=== PATIENT | male | born 1950 ===

== ENCOUNTER 2025-05-21 14:03 | Inpatient (IN) | payer MEDICARE, OTHER ==
[~2025-05-21] VITALS: Ht 175.3 cm; Wt 77.1 kg
[2025-05-21] MEDS ORDERED: VANCOMYCIN IV 1,000 MG in IV DEXTROSE 5% 250 ML IV ONE (14:15)
[2025-05-21 14:30] LABS: BASOPHILS % (AUTO) 0.1 % (0.0-2.0); HEMATOCRIT 45.3 % (36.7-47.1); HEMOGLOBIN 14.8 g/dL (12.5-16.3); LYMPHOCYTES # (AUTO) 0.5 K/uL (0.8-4.8); LYMPHOCYTES % (AUTO) 2.5 % (20.5-51.5); MEAN CORPUSCULAR HEMOGLOBIN 28.1 uug (23.8-33.4); MEAN CORPUSCULAR HGB CONC 33 g/dL (32.5-36.3); MEAN CORPUSCULAR VOLUME 86.2 fL (73.0-96.2); MONOCYTES # (AUTO) 1.7 K/uL (0.1-1.30); MONOCYTES % (AUTO) 8.8 % (0.0-11.0); NEUTROPHILS # (AUTO) 17.6 K/uL (1.8-8.9); NEUTROPHILS % (AUTO) 88.6 % (38.5-71.5); PLATELET COUNT (AUTO) 276 K/uL (152-348); RED BLOOD CELL COUNT(AUTO) 5.26 MIL/uL (4.06-5.63); WHITE BLOOD COUNT (AUTO) 19.9 K/uL (3.6-10.2)
[2025-05-21] MEDS ORDERED: LOSA50TA39 PO (14:32)
[2025-05-21] MEDS ORDERED: TRAZ150T75 PO (14:32)
[2025-05-21] MEDS ORDERED: LOPE2TAB25 PO (14:32)
[2025-05-21] MEDS ORDERED: MULT-213 PO (14:32)
[2025-05-21] MEDS ORDERED: ATOR10TA PO (14:32)
[2025-05-21] MEDS ORDERED: LEVO150T8 PO (14:32)
[2025-05-21] MEDS ORDERED: MIRT-74 PO (14:32)
[2025-05-21] MEDS ORDERED: ACET-3117 PO (14:32)
[2025-05-21] MEDS ORDERED: BISA10SU95 RC (14:32)
[2025-05-21] MEDS ORDERED: ASCO500C18 PO (14:32)
[2025-05-21] MEDS ORDERED: LAMO150T6 PO (14:32)
[2025-05-21] MEDS ORDERED: FLUP5TAB14 PO ×2 (14:32)
[2025-05-21] MEDS ORDERED: DOCU100T2 PO (14:32)
[2025-05-21] MEDS ORDERED: CRAN450T9 PO (14:32)
[2025-05-21] MEDS ORDERED: TAMS-3 PO (14:32)
[2025-05-21] MEDS ORDERED: LAMO100T17 PO (14:32)
[2025-05-21] MEDS ORDERED: HYDR-3980 PO (14:32)
[2025-05-21] MEDS ORDERED: SERT100T PO (14:32)
[2025-05-21] MEDS ORDERED: NA P133E8 RC (14:32)
[2025-05-21] MEDS ORDERED: FINA5TAB11 PO (14:32)
[2025-05-21] MEDS ORDERED: CEFTRIAXONE /D5W 50ML IVPB **ER PYXIS IV ONE ×2 (14:33→22:00)
[2025-05-21] MEDS ORDERED: AZITHROMYCIN 500MG/ D5W 250ML IVPB **ER PYXIS ONLY IV ONE (14:34)
[2025-05-21] MEDS: AZITHROMYCIN IV 500 MG in IV DEXTROSE 5% 250 ML IV ONE (14:34)
[2025-05-21] MEDS: DEXAMETHASONE SOD PHOSPHATE 4 MG INJ IV ONE (14:34)
[2025-05-21] MEDS: CEFTRIAXONE 1 G in IV DEXTROSE 5% 50 ML IV ONE (14:34)
[2025-05-21] MEDS ORDERED: DEXAMETHASONE SOD PHOSPHATE 10 MG INJ ONE (14:34)
[2025-05-21] MEDS: IV NORMAL SALINE 1000 ML BAG IV ONE (14:34)
[2025-05-21 14:35] LABS: DIFFERENTIAL COMMENT 1
[2025-05-21 14:38] LABS: CALCIUM 10.4 mg/dL (8.5-10.1); CARBON DIOXIDE 25 mmol/L (21-32); CHLORIDE 99 mmol/L (98-107); CREATININE 1.7 mg/dL (0.6-1.3); GLUCOSE 156 mg/dL (74-106); POTASSIUM 4.8 mmol/L (3.5-5.1); SODIUM SERUM 137 mmol/L (136-145); UREA NITROGEN, BLOOD 29 mg/dL (7-18)
[2025-05-21 14:47] LABS: ABG BASE EXCESS 0.5 mmol/L (-2.0-3.0); ABG HCO3 22.3 mmol/L (21.0-28.0); ABG PCO2 28.7 mmHg (35.0-48.0); ABG PH 7.508 (7.350-7.450); ABG PO2 54.1 mmHg (83.0-108.0); ABG SITE RIGHT RADIAL; ABG TOTAL HEMOGLOBIN 14.8 G/dL (13.5-17.5); AaDO2 91.4 mmHg; COHb 1.1 % (0.5-1.5); MetHb 0.2 % (0.0-1.5); O2Hb 90.3 % (94.0-98.0)
[2025-05-21 14:50] LABS: LACTIC ACID 2.7 mmol/L (0.4-2.0)
[2025-05-21 14:51] LABS: ALANINE AMINOTRANSFERASE 23 U/L (16-63); ALBUMIN 3.4 g/dL (3.4-5.0); ALKALINE PHOSPHATASE 121 U/L (50-136); ASPARTATE AMINOTRANSFERASE 20 U/L (15-37); BILIRUBIN,DIRECT 0.2 mg/dL (0.0-0.2); BILIRUBIN,TOTAL 0.5 mg/dL (0.2-1.0); NT-PRO BNP 406 pg/mL (0-125); TOTAL PROTEIN, SERUM 7.6 g/dL (6.4-8.2)
[2025-05-21 16:00] LABS: *BILIRUBIN,URIN NEGATIVE (NEGATIVE); *BLOOD, URINE 2+ (NEGATIVE); *COLOR,URINE LIGHT YELLOW (YELLOW); *KETONES,URINE NEGATIVE (NEGATIVE); *PROTEIN,URINE 2+ (NEGATIVE); *UROBILINOGEN,URINE 0.2 E.U./dl (NORMAL); LEUKOCYTE ESTERASE ,URINE 3+ (NEGATIVE); NITRITE, URINE POSITIVE (NEGATIVE); UGLUCOSE NEGATIVE (NEGATIVE)
[2025-05-21 16:03] LABS: *CLARITY,URINE HAZY (CLEAR)
[2025-05-21 16:15] LABS: WBC,URINE 80-100 /HPF (0-3)
[2025-05-21 16:16] LABS: BACTERIA,URINE MODERATE /HPF (NONE SEEN); SQUAMOUS EPITHELIAL CELL,UR FEW /HPF (NONE SEEN)
[2025-05-21 21:10] VITALS: BP 112/70; TEMP 98.3; O2SAT 96
[2025-05-21] MEDS ORDERED: ONDANSETRON 4 MG/2 ML VIAL IV PRN (21:45)
[2025-05-21] MEDS: ENOXAPARIN SODIUM 40 MG/0.4 ML DISP.SYRIN SQ SCH (22:00)
[2025-05-21] MEDS: CEFTRIAXONE 1 G in IV DEXTROSE 5% 50 ML IV SCH (22:32)
[2025-05-21] MEDS: IV NS 1000 ML 1,000 ML IV PRN (22:32)
[2025-05-21] MEDS ORDERED: HYDROCODONE/APAP 10-325 MG TABLET PO PRN (23:15)
[2025-05-21] MEDS: FLUPHENAZINE HCL 5 MG TABLET PO SCH (23:15)
[2025-05-22] VITALS (7 sets, daily range): BP systolic 98–110; BP diastolic 54–64; TEMP 98.2–98.5; O2SAT 94–97
[2025-05-22] MEDS: TAMSULOSIN HCL 0.4 MG CAP.SR.24H PO SCH (00:08)
[2025-05-22] MEDS: LAMOTRIGINE 100 MG TABLET PO SCH ×2 (00:08→09:01)
[2025-05-22] MEDS: MIRTAZAPINE 15 MG TABLET PO SCH (00:09)
[2025-05-22] MEDS: ATORVASTATIN 10 MG TABLET PO SCH (00:10)
[2025-05-22] MEDS: FINASTERIDE 5 MG TABLET PO SCH (00:10)
[2025-05-22] MEDS: TRAZODONE 100 MG TABLET PO SCH (00:11)
[2025-05-22 06:38] LABS: HEMATOCRIT 36.1 % (36.7-47.1); HEMOGLOBIN 12.1 g/dL (12.5-16.3); LYMPHOCYTES # (AUTO) 0.6 K/uL (0.8-4.8); LYMPHOCYTES % (AUTO) 3.2 % (20.5-51.5); MEAN CORPUSCULAR HGB CONC 34 g/dL (32.5-36.3); MEAN CORPUSCULAR VOLUME 86.2 fL (73.0-96.2); MONOCYTES # (AUTO) 1.7 K/uL (0.1-1.30); MONOCYTES % (AUTO) 9.2 % (0.0-11.0); NEUTROPHILS # (AUTO) 16.4 K/uL (1.8-8.9); NEUTROPHILS % (AUTO) 87.6 % (38.5-71.5); PLATELET COUNT (AUTO) 253 K/uL (152-348); RED BLOOD CELL COUNT(AUTO) 4.18 MIL/uL (4.06-5.63); RED CELL DISTRIBUTION WIDTH 14.9 % (12.1-16.2); WHITE BLOOD COUNT (AUTO) 18.7 K/uL (3.6-10.2)
[2025-05-22 06:41] LABS: DIFFERENTIAL COMMENT 1
[2025-05-22] MEDS: LEVOTHYROXINE SODIUM 150 MCG TABLET PO SCH (06:45)
[2025-05-22 06:47] LABS: CALCIUM 9.6 mg/dL (8.5-10.1); CARBON DIOXIDE 24 mmol/L (21-32); CHLORIDE 104 mmol/L (98-107); CREATININE 1.2 mg/dL (0.6-1.3); GLUCOSE 126 mg/dL (74-106); MAGNESIUM 2.2 mg/dL (1.8-2.4); PHOSPHOROUS 3.1 mg/dL (2.5-4.9); POTASSIUM 4.6 mmol/L (3.5-5.1); SODIUM SERUM 141 mmol/L (136-145); UREA NITROGEN, BLOOD 25 mg/dL (7-18)
[2025-05-22] MEDS: FLUPHENAZINE HCL 5 MG TABLET PO SCH (08:59)
[2025-05-22] MEDS: MULTIVITAMINS,THERAPEUTIC TABLET PO SCH (09:00)
[2025-05-22] MEDS: LOSARTAN POTASSIUM 50 MG TABLET PO SCH (09:00)
[2025-05-22] MEDS: SERTRALINE HCL 100 MG TABLET PO SCH (09:01)
[2025-05-22] MEDS: ASCORBIC ACID 500 MG TABLET PO SCH (09:01)
[2025-05-22] MEDS: DOCUSATE SODIUM 100 MG CAPSULE PO SCH (09:02)
[2025-05-22] MEDS: MEROPENEM 1 G in IV NORMAL SALINE 100 ML IV SCH (14:06)
[2025-05-23] VITALS (8 sets, daily range): BP systolic 110–119; BP diastolic 59–71; TEMP 97.6–99.3; O2SAT 92–98
[2025-05-23 01:10] LABS: *BILIRUBIN,URIN NEGATIVE (NEGATIVE); *BLOOD, URINE 1+ (NEGATIVE); *CLARITY,URINE CLEAR (CLEAR); *COLOR,URINE YELLOW (YELLOW); *KETONES,URINE NEGATIVE (NEGATIVE); *PROTEIN,URINE 1+ (NEGATIVE); *UROBILINOGEN,URINE 0.2 E.U./dl (NORMAL); LEUKOCYTE ESTERASE ,URINE 2+ (NEGATIVE); NITRITE, URINE NEGATIVE (NEGATIVE); UGLUCOSE NEGATIVE (NEGATIVE)
[2025-05-23 01:24] LABS: *CREATININE,URINE 32.7 mg/dL (30-125); *URINE TOTAL PROTEIN RANDOM 50.1 mg/dL (<150/24HR)
[2025-05-23 01:51] LABS: BACTERIA,URINE MODERATE /HPF (NONE SEEN); SQUAMOUS EPITHELIAL CELL,UR FEW /HPF (NONE SEEN); WBC,URINE 20-50 /HPF (0-3)
[2025-05-23 06:50] LABS: ALANINE AMINOTRANSFERASE 24 U/L (16-63); ALBUMIN 2.3 g/dL (3.4-5.0); ALKALINE PHOSPHATASE 84 U/L (50-136); ASPARTATE AMINOTRANSFERASE 20 U/L (15-37); BILIRUBIN,TOTAL 0.3 mg/dL (0.2-1.0); CALCIUM 9.6 mg/dL (8.5-10.1); CARBON DIOXIDE 25 mmol/L (21-32); CHLORIDE 110 mmol/L (98-107); CREATINE KINASE, TOTAL 75 U/L (39-308); CREATININE 1.4 mg/dL (0.6-1.3); GLUCOSE 96 mg/dL (74-106); MAGNESIUM 2.1 mg/dL (1.8-2.4); POTASSIUM 3.9 mmol/L (3.5-5.1); SODIUM SERUM 144 mmol/L (136-145); TOTAL PROTEIN, SERUM 5.8 g/dL (6.4-8.2); UREA NITROGEN, BLOOD 23 mg/dL (7-18)
[2025-05-23 06:51] LABS: BASOPHILS % (AUTO) 0.1 % (0.0-2.0); EOSINOPHILS # (AUTO) 0.1 K/uL (0.0-0.7); EOSINOPHILS % (AUTO) 0.5 % (0.0-7.0); HEMATOCRIT 36.4 % (36.7-47.1); HEMOGLOBIN 12.1 g/dL (12.5-16.3); LYMPHOCYTES # (AUTO) 0.9 K/uL (0.8-4.8); LYMPHOCYTES % (AUTO) 7.4 % (20.5-51.5); MEAN CORPUSCULAR HEMOGLOBIN 28.7 uug (23.8-33.4); MEAN CORPUSCULAR HGB CONC 33 g/dL (32.5-36.3); MEAN CORPUSCULAR VOLUME 86.8 fL (73.0-96.2); MONOCYTES # (AUTO) 1.7 K/uL (0.1-1.30); MONOCYTES % (AUTO) 14.5 % (0.0-11.0); NEUTROPHILS % (AUTO) 77.5 % (38.5-71.5); PLATELET COUNT (AUTO) 278 K/uL (152-348); RED CELL DISTRIBUTION WIDTH 15.1 % (12.1-16.2); WHITE BLOOD COUNT (AUTO) 11.6 K/uL (3.6-10.2)
[2025-05-23 06:59] LABS: DIFFERENTIAL COMMENT 1
[2025-05-23] MEDS: NEUTRA PHOS PACKET PO ONE (17:20)
[2025-05-24] VITALS (8 sets, daily range): BP systolic 119–135; BP diastolic 51–75; TEMP 98–101; O2SAT 93–98
[2025-05-24] MEDS: ACETAMINOPHEN 325 MG TABLET PO PRN (00:07)
[2025-05-24 06:42] LABS: BASOPHILS % (AUTO) 0.2 % (0.0-2.0); EOSINOPHILS # (AUTO) 0.1 K/uL (0.0-0.7); HEMATOCRIT 36.7 % (36.7-47.1); HEMOGLOBIN 12.1 g/dL (12.5-16.3); LYMPHOCYTES # (AUTO) 0.8 K/uL (0.8-4.8); LYMPHOCYTES % (AUTO) 10.2 % (20.5-51.5); MEAN CORPUSCULAR HEMOGLOBIN 28.8 uug (23.8-33.4); MEAN CORPUSCULAR HGB CONC 33 g/dL (32.5-36.3); MEAN CORPUSCULAR VOLUME 87.2 fL (73.0-96.2); MONOCYTES # (AUTO) 1.1 K/uL (0.1-1.30); MONOCYTES % (AUTO) 14.2 % (0.0-11.0); NEUTROPHILS # (AUTO) 5.7 K/uL (1.8-8.9); NEUTROPHILS % (AUTO) 74.4 % (38.5-71.5); PLATELET COUNT (AUTO) 269 K/uL (152-348); RED BLOOD CELL COUNT(AUTO) 4.21 MIL/uL (4.06-5.63); RED CELL DISTRIBUTION WIDTH 15.4 % (12.1-16.2); WHITE BLOOD COUNT (AUTO) 7.6 K/uL (3.6-10.2)
[2025-05-24 06:46] LABS: DIFFERENTIAL COMMENT 1
[2025-05-24 07:08] LABS: CALCIUM 9.1 mg/dL (8.5-10.1); CARBON DIOXIDE 23 mmol/L (21-32); CHLORIDE 110 mmol/L (98-107); CREATININE 1.3 mg/dL (0.6-1.3); GLUCOSE 92 mg/dL (74-106); MAGNESIUM 2.1 mg/dL (1.8-2.4); PHOSPHOROUS 2.8 mg/dL (2.5-4.9); SODIUM SERUM 144 mmol/L (136-145); UREA NITROGEN, BLOOD 18 mg/dL (7-18)
[2025-05-24] MEDS ORDERED: MEROPENEM 1 G in IV NORMAL SALINE 100 ML IV SCH (08:30)
[2025-05-24 12:07] LABS: PTH, INTACT 41 pg/mL (15-65)
[2025-05-24] MEDS ORDERED: ALBUTEROL SULFATE 1.25 MG/3 ML NEBU NEB PRN (13:15)
[2025-05-24] MEDS: MORPHINE SULFATE 2 MG/1 ML DISP.SYRIN IV PRN (13:50)
[2025-05-24] MEDS: MEROPENEM 1 G in IV NORMAL SALINE 100 ML IV SCH (17:27)
[2025-05-25] VITALS (11 sets, daily range): BP systolic 103–145; BP diastolic 49–90; TEMP 97.2–99.3; O2SAT 93–98
[2025-05-25 05:56] LABS: ABG BASE EXCESS -1.2 mmol/L (-2.0-3.0); ABG HCO3 22.3 mmol/L (21.0-28.0); ABG PCO2 33.5 mmHg (35.0-48.0); ABG PH 7.441 (7.350-7.450); ABG PO2 66.8 mmHg (83.0-108.0); ABG SITE RIGHT BRACHIAL; ABG TOTAL HEMOGLOBIN 13.1 G/dL (13.5-17.5); AaDO2 94.1 mmHg; COHb 0.6 % (0.5-1.5); MetHb 0.1 % (0.0-1.5); O2Hb 94.1 % (94.0-98.0)
[2025-05-25 07:23] LABS: BASOPHILS % (AUTO) 0.3 % (0.0-2.0); EOSINOPHILS # (AUTO) 0.3 K/uL (0.0-0.7); EOSINOPHILS % (AUTO) 4.7 % (0.0-7.0); HEMATOCRIT 36.7 % (36.7-47.1); HEMOGLOBIN 12.2 g/dL (12.5-16.3); LYMPHOCYTES # (AUTO) 0.8 K/uL (0.8-4.8); LYMPHOCYTES % (AUTO) 12.1 % (20.5-51.5); MEAN CORPUSCULAR HEMOGLOBIN 28.8 uug (23.8-33.4); MEAN CORPUSCULAR HGB CONC 33 g/dL (32.5-36.3); MEAN CORPUSCULAR VOLUME 86.3 fL (73.0-96.2); MONOCYTES # (AUTO) 0.9 K/uL (0.1-1.30); MONOCYTES % (AUTO) 13.3 % (0.0-11.0); NEUTROPHILS # (AUTO) 4.8 K/uL (1.8-8.9); NEUTROPHILS % (AUTO) 69.6 % (38.5-71.5); PLATELET COUNT (AUTO) 267 K/uL (152-348); RED BLOOD CELL COUNT(AUTO) 4.26 MIL/uL (4.06-5.63); RED CELL DISTRIBUTION WIDTH 14.9 % (12.1-16.2); WHITE BLOOD COUNT (AUTO) 6.9 K/uL (3.6-10.2)
[2025-05-25 07:41] LABS: DIFFERENTIAL COMMENT 1
[2025-05-25 07:47] LABS: ALANINE AMINOTRANSFERASE 40 U/L (16-63); ALBUMIN 2.2 g/dL (3.4-5.0); ALKALINE PHOSPHATASE 87 U/L (50-136); ASPARTATE AMINOTRANSFERASE 25 U/L (15-37); BILIRUBIN,TOTAL 0.4 mg/dL (0.2-1.0); CALCIUM 9.3 mg/dL (8.5-10.1); CARBON DIOXIDE 24 mmol/L (21-32); CHLORIDE 110 mmol/L (98-107); CHOLESTEROL 95 mg/dL (<200); CREATININE 1.2 mg/dL (0.6-1.3); GLUCOSE 93 mg/dL (74-106); HDL CHOLESTEROL 26 mg/dL (40-60); MAGNESIUM 2.3 mg/dL (1.8-2.4); PHOSPHOROUS 3.1 mg/dL (2.5-4.9); POTASSIUM 4.1 mmol/L (3.5-5.1); SODIUM SERUM 143 mmol/L (136-145); TOTAL PROTEIN, SERUM 5.6 g/dL (6.4-8.2); TRIGLYCERIDES 146 MG/DL (30-150); UREA NITROGEN, BLOOD 17 mg/dL (7-18)
[2025-05-25 07:54] LABS: THYROID STIMULATING HORMONE 2.385 mIU/mL (0.358-3.740)
[2025-05-25] MEDS ORDERED: IOHEXOL 350 100 ML INFUS..BTL ONE (12:06)
[2025-05-25] MEDS ORDERED: IV NORMAL SALINE 250 ML IV ONE (12:06)
[2025-05-25] MEDS ORDERED: SWABABLE VALVE TRANSFER SET EA MC ONE (12:06)
[2025-05-25] MEDS ORDERED: IPRATROPIUM BROMIDE 0.5 MG/2.5 ML NEBU NEB PRN (19:30)
[2025-05-25] MEDS: ACIDOPHILUS/BULGARICUS CHEW TAB PO SCH (20:58)
[2025-05-26 06:20] VITALS: BP 120/73; TEMP 97.9; O2SAT 93
[2025-05-26 11:35] VITALS: BP 121/78; TEMP 97.9; O2SAT 94
[2025-05-26 12:07] LABS: A/G RATIO 0.9 (0.7-1.7); ALBUMIN 2.4 g/dL (2.9-4.4); ALPHA-1-GLOBULIN 0.3 g/dL (0.0-0.4); ALPHA-2-GLOBULIN 0.9 g/dL (0.4-1.0); BETA GLOBULIN 0.9 g/dL (0.7-1.3); GAMMA GLOBULIN 0.6 g/dL (0.4-1.8); GLOBULIN, TOTAL 2.8 g/dL (2.2-3.9); M-SPIKE Not Observed g/dL (Not Observed); PROTEIN, TOTAL 5.2 g/dL (6.0-8.5)
[2025-05-26 15:55] VITALS: BP 139/81; TEMP 97.7; O2SAT 95
[2025-05-26] MEDS ORDERED: ACID1TAB4 PO (16:38)
[2025-05-26] MEDS ORDERED: AMOX-427 PO (16:38)
[2025-05-26] MEDS ORDERED: IPRA0.2S6 NEB (16:38)
[2025-05-26] MEDS ORDERED: ALBU1.25 NEB (16:38)
[2025-05-26 20:04] VITALS: BP 123/75; TEMP 98.3; O2SAT 91
== END 2025-05-26 20:35 | DRG 871 ==
LOC: ER 14:03 → TELE3 14:50 → MEDSURG3 05-25 19:56
PROVIDERS: ADMIT Nurse Practitioner Acute Care; ATTEND Internal Medicine
DX: A41.51 Sepsis due to Escherichia coli [E. coli] (principal); G92.8 Other toxic encephalopathy; J69.0 Pneumonitis due to inhalation of food and vomit; J96.01 Acute respiratory failure with hypoxia; N17.0 Acute kidney failure with tubular necrosis; I63.81 Other cerebral infarction due to occlusion or stenosis of small artery; N13.6 Pyonephrosis; D68.59 Other primary thrombophilia; E44.0 Moderate protein-calorie malnutrition; R65.20 Severe sepsis without septic shock; B96.20 Unspecified Escherichia coli [E. coli] as the cause of diseases classified elsewhere; F25.9 Schizoaffective disorder, unspecified; Z74.09 Other reduced mobility; I12.9 Hypertensive chronic kidney disease with stage 1 through stage 4 chronic kidney disease, or unspecified chronic kidney disease; N18.30 Chronic kidney disease, stage 3 unspecified; N40.0 Benign prostatic hyperplasia without lower urinary tract symptoms; Z68.25 Body mass index [BMI] 25.0-25.9, adult; F32.A Depression, unspecified; Z80.42 Family history of malignant neoplasm of prostate; Z87.891 Personal history of nicotine dependence; E78.5 Hyperlipidemia, unspecified; E03.9 Hypothyroidism, unspecified; L57.0 Actinic keratosis; S72.102D Unspecified trochanteric fracture of left femur, subsequent encounter for closed fracture with routine healing; S72.302D Unspecified fracture of shaft of left femur, subsequent encounter for closed fracture with routine healing; X58.XXXD Exposure to other specified factors, subsequent encounter; Z90.49 Acquired absence of other specified parts of digestive tract; S70.02XA Contusion of left hip, initial encounter; W19.XXXA Unspecified fall, initial encounter; Y93.9 Activity, unspecified; Y92.099 Unspecified place in other non-institutional residence as the place of occurrence of the external cause; J44.9 Chronic obstructive pulmonary disease, unspecified
CPT/HCPCS: 36415; 36600; 70450; 71045; 71275; 72125; 72170; 73501; 76770; 83605; 83735; 83970; 84100; 84155; 84165; 84300; 84443; 84484; 85025; 85730; 87040; 87077; 87086; 93307; A4606; A4663; G0378; J0456; J0696; J1100; J1650; J2185; J2270; J7040; Q9967